=== PATIENT | female | born 1975 | race Caucasian/White ===

== ENCOUNTER 2016-03-12 05:50 | Emergency (ER) | payer OTHER ==
[2016-03-12] MEDS ORDERED: KETOROLAC 30 MG/ML VIAL ONE (06:16)
[2016-03-12] MEDS ORDERED: ONDANSETRON 4 MG/2 ML VIAL IVP STA (06:16)
[2016-03-12] MEDS ORDERED: HYDROmorphone 1 MG/ML SYRINGE IVP STA ×2 (06:16→07:43)
[2016-03-12] MEDS ORDERED: KETOROLAC 60 MG/2 ML VIAL IVP STA (06:16)
[2016-03-12] MEDS ORDERED: ONDANSETRON 4 MG/2 ML VIAL ONE (06:16)
[2016-03-12] MEDS ORDERED: HYDROmorphone 1 MG/ML SYRINGE ONE ×2 (06:16→07:50)
[2016-03-12] MEDS ORDERED: SODIUM CHLORIDE 0.9% 1,000 ML IV STA (06:17)
[2016-03-12] MEDS ORDERED: oxyCODONE 5 MG TABLET PO STA (07:43)
[2016-03-12] MEDS ORDERED: oxyCODONE 5 MG TABLET ONE (07:51)
== END 2016-03-12 08:23 | disposition home or self-care (01) ==
DX: N20.2 Calculus of kidney with calculus of ureter (principal)
CPT/HCPCS: 74176; 81001; 81025; 96374; 96375; 96376; 99283; 99284; A9270; J1170

== ENCOUNTER 2016-04-06 17:33 | Emergency (ER) | payer OTHER ==
[2016-04-06] MEDS ORDERED: SODIUM CHLORIDE 0.9% 1,000 ML IV ONE (18:11)
[2016-04-06] MEDS ORDERED: ONDANSETRON 4 MG/2 ML VIAL IVP STA (18:11)
[2016-04-06] MEDS ORDERED: KETOROLAC 60 MG/2 ML VIAL IVP STA (18:11)
[2016-04-06] MEDS ORDERED: HYDROmorphone 1 MG/ML SYRINGE IVP STA ×2 (18:11→20:35)
[2016-04-06] MEDS ORDERED: KETOROLAC 30 MG/ML VIAL ONE (18:30)
[2016-04-06] MEDS ORDERED: ONDANSETRON 4 MG/2 ML VIAL ONE (18:30)
[2016-04-06] MEDS ORDERED: HYDROmorphone 1 MG/ML SYRINGE ONE ×2 (18:30→20:37)
== END 2016-04-06 21:25 | disposition home or self-care (01) ==
DX: T83.84XA Pain due to genitourinary prosthetic devices, implants and grafts, initial encounter (principal); Y83.8 Other surgical procedures as the cause of abnormal reaction of the patient, or of later complication, without mention of misadventure at the time of the procedure; Z87.442 Personal history of urinary calculi
CPT/HCPCS: 36415; 76775; 80053; 81001; 81025; 83690; 85025; 87086; 96361; 96374; 96375; 96376; 99284; J1170

== ENCOUNTER 2016-04-07 10:16 | Emergency (ER) | payer OTHER ==
[2016-04-07] MEDS ORDERED: KETOROLAC 60 MG/2 ML VIAL IVP STA (12:07)
[2016-04-07] MEDS ORDERED: HYDROmorphone 1 MG/ML SYRINGE IVP STA ×2 (12:07→12:44)
[2016-04-07] MEDS ORDERED: ONDANSETRON 4 MG/2 ML VIAL IVP STA (12:07)
[2016-04-07] MEDS ORDERED: SODIUM CHLORIDE 0.9% 1,000 ML IV ONE (12:07)
[2016-04-07] MEDS ORDERED: ONDANSETRON 4 MG/2 ML VIAL ONE (12:10)
[2016-04-07] MEDS ORDERED: KETOROLAC 30 MG/ML VIAL ONE (12:10)
[2016-04-07] MEDS ORDERED: HYDROmorphone 1 MG/ML SYRINGE ONE ×2 (12:10→12:49)
[2016-04-07] MEDS ORDERED: LORazepam 2 MG/ML SYRINGE ONE (13:07)
[2016-04-07] MEDS ORDERED: LORazepam 2 MG/ML SYRINGE IVP STA (13:07)
== END 2016-04-07 14:49 | disposition home or self-care (01) ==
DX: R10.84 Generalized abdominal pain (principal); K59.09 Other constipation; F41.9 Anxiety disorder, unspecified; Z87.442 Personal history of urinary calculi; G40.909 Epilepsy, unspecified, not intractable, without status epilepticus
CPT/HCPCS: 36415; 74000; 80048; 81001; 87086; 96361; 96374; 96375; 96376; 99283; 99284; J1170; J2060

== ENCOUNTER 2017-05-15 17:56 | Emergency (ER) | payer OTHER ==
--- NOTE | 2017-05-15 19:29 | XRAY Report ---
EXAM: CHEST RADIOGRAPHY EXAM DATE: 05/15/2017 06:52 PM. CLINICAL HISTORY: Fever, productive cough. COMPARISON: 03/09/2012 chest x-ray. TECHNIQUE: 2 views. FINDINGS: Lungs/Pleura: No focal opacities evident. No pleural effusion. No pneumothorax. Normal volumes. Mediastinum: Heart and mediastinal contours are unremarkable. Other: None. IMPRESSION: Normal 2-view chest radiography. [facility] Referring Provider Line: [phone] SITE ID: [id number]
[2017-05-15] MEDS ORDERED: ACETAMINOPHEN 325 MG TABLET PO STA (20:03)
[2017-05-15 20:21] VITALS: BP 136/90
[2017-05-15] MEDS ORDERED: ONDANSETRON ODT 4 MG TABLET TL STA (20:35)
--- NOTE | 2017-05-15 20:38 | ED Physician Documentation ---
PD HPI URI - Stated complaint Stated Complaint: cough,fever,congestion - Chief complaint Chief Complaint: Fever - History obtained from History obtained from: Patient - History of Present Illness Timing - onset: How many days ago (2) Timing details: Gradual onset, Still present Associated symptoms: Fever, Chills, Nasal congestion, Rhinorrhea, Dry cough Contributing factors: Sick contact Similar symptoms before: No diagnosis Recently seen: Not recently seen - Additional information Additional information: Patient is a 41 year old female with no significant past medical history who is presenting to the emergency department for fevers chills, nausea, congestion, and cough. Patient states that two other people in her house have been sick with similar symptoms. Patient states that she took mucinex dm but her symptoms persisted. Review of Systems Constitutional: reports: Fever, Chills Eyes: reports: Reviewed and negative Ears: denies: Ear pain Nose: reports: Rhinorrhea / runny nose, Congestion, Sinus pressure / pain Throat: denies: Sore throat Respiratory: reports: Cough. denies: Wheezing GI: reports: Nausea. 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 HEENT: Tonsil/Adenoidectomy - Present Medications Home Medications: Ambulatory Orders Medication Instructions Recorded Confirmed Topiramate [Topamax] 25 mg PO DAILY PRN 02/09/16 03/12/16 Zolpidem [Ambien] 5 mg PO DAILY 02/09/16 03/12/16 Ondansetron Odt [Zofran] 4 mg TL Q6H PRN #14 tablet 05/15/17 - Allergies Allergies/Adverse Reactions: Allergies Allergy/AdvReac Type Severity Reaction Status Date / Time sulfamethoxazole AdvReac Unknown Verified 05/15/17 18:02 [From ] trimethoprim [From ] AdvReac Unknown Verified 05/15/17 18:02 - Social History Does the pt smoke?: No Smoking Status: Never smoker Does the pt drink ETOH?: Yes Does the pt have substance abuse?: No - Immunizations Immunizations are current?: Yes Immunizations: Other immun current - POLST Patient has POLST: No PD ED PE NORMAL - Vitals Vital signs reviewed: Yes - General General: Alert and oriented X 3 - HEENT HEENT: Atraumatic, PERRL, Moist mucous membranes - Neck Neck: Supple, no meningeal sign - Cardiac Cardiac: RRR, No murmur - Respiratory Respiratory: No respiratory distress - Abdomen Abdomen: Soft, Non distended - Derm Derm: Normal color, No rash - Extremities Extremities: No deformity - Neuro Neuro: Alert and oriented X 3 Eye Opening: Spontaneous PD ED PE EXPANDED - HEENT HEENT: Nasal congestion, Rhinorrhea Results - Vitals Vitals: Vital Signs - 24 hr 05/15/17 05/15/17 05/15/17 17:59 19:57 20:20 Temperature 36.8 C 38.9 C H 37.1 C Heart Rate 95 96 Respiratory 22 20 Rate Blood Pressure 120/86 H 136/90 H O2 Saturation 97 97 Oxygen O2 Source Room air - Labs Labs: Laboratory Tests 05/15/17 05/15/17 18:08 20:14 Urine Color YELLOW Urine Clarity CLEAR Urine pH 6.0 Ur Specific [place] <=1.005 Urine Protein NEGATIVE Urine Glucose (UA) NEGATIVE Urine Ketones NEGATIVE Urine Occult Blood NEGATIVE Urine Nitrite NEGATIVE Urine Bilirubin NEGATIVE Urine Urobilinogen 0.2 (NORMAL) Ur Leukocyte Esterase TRACE H Urine RBC None Seen Urine WBC 0-3 Ur Squamous Epith Cells MOD Squamous H Urine Bacteria None Seen Ur Microscopic Review INDICATED Urine Culture Comments NOT INDICATED Influenza A (Rapid) Negative Influenza B (Rapid) Negative Influenza Types A,B Ag - PD MEDICAL DECISION MAKING - ED course Complexity details: reviewed old records, reviewed results, re-evaluated patient , considered differential, d/w patient ED course: patient was seen and examined at bedside. Patient's chest x-ray and flu swab was negative, but clinically patient had signs and symptoms of influenza. Patient was treated with zofran and tylenol. patient was able to tolerate PO without difficulty. patient was given detailed discharge and follow up instructions. patient required no further work up and was stable for discharge with outpatient follow up. Departure - Departure Disposition: 01 Home, Self Care Clinical Impression: Viral syndrome Condition: Good Instructions: ED Fever Control, ED Flu, ED Viral Syndrome Follow-Up: Gregor,Jillian K, PA-C [Primary Care Provider] - Prescriptions: Ondansetron Odt [Zofran] 4 mg TL Q6H PRN #14 tablet PRN Reason: Nausea / Vomiting Comments: Your diagnostics today were within normal limits. That being said you clinically seem to have the flu. Either way the treatment is the same with supportive care. The over the counter cold and flu medications are good but you will need to supplement the doses of acetaminophen or ibuprofen for better fever control. You should be taking 1000mg of acetaminophen every 6 hours alternating with 600mg of ibuprofen. It is important to drink at least 100oz of fluids a day and get plenty of sleep. You should stay out of work until your fevers/symptoms resolve. You should follow up with your doctor if your symptoms persist. You may return to the emergency department at any time for new, worsening or uncontrollable sympotms. Discharge Date/Time: 05/15/17 20:49
[2017-05-15 20:42] LABS: BILIRUBIN,URINE NEGATIVE (NEGATIVE); GLUCOSE, URINE (UA) NEGATIVE (NEGATIVE); KETONES,URINE (UA) NEGATIVE (NEGATIVE); LEUKOCYTE ESTERASE, URINE TRACE (NEGATIVE); NITRITE,URINE NEGATIVE (NEGATIVE); OCCULT BLOOD,URINE NEGATIVE (NEGATIVE); PROTEIN,URINE NEGATIVE (NEGATIVE); UROBILINOGEN,URINE 0.2 (NORMAL) E.U./dL (NORMAL)
[2017-05-15 20:44] LABS: CLARITY,URINE CLEAR (CLEAR)
[2017-05-15 20:50] LABS: BACTERIA,URINE None Seen /HPF (None Seen); RBC,URINE None Seen /HPF (0-5); SQUAMOUS EPITHELIAL CELL,UR MOD Squamous (<= Few)
== END 2017-05-15 20:49 | disposition home or self-care (01) ==
LOC: ED 17:56
DX: B34.9 Viral infection, unspecified (principal)
CPT/HCPCS: 71046; 81001; 87275; 87276; 99283; A9270; Q0162; 81003; 87086

== ENCOUNTER 2017-06-04 16:11 | Outpatient (CLI) | payer OTHER ==
--- NOTE | 2017-06-05 11:50 | Mammography Report ---
DIGITAL SCREENING MAMMOGRAM: 06/04/2017 CLINICAL INDICATION: A 41-year-old for screening. COMPARISON: 05/2015, 04/2002. TECHNIQUE: Routine CC and MLO projections were obtained of the breasts. FINDINGS: Parenchymal tissue within the breasts is predominantly fatty replaced. There are no dominant masses, suspicious microcalcifications, or secondary signs of malignancy. In comparison to the previous studies, there are no significant changes. IMPRESSION: NO MAMMOGRAPHIC EVIDENCE OF MALIGNANCY. NO SIGNIFICANT INTERVAL CHANGES. RECOMMENDATION: Screening mammography is recommended annually. BIRADS CATEGORY 1 - NEGATIVE. STANDARD QUALIFYING STATEMENTS: 1. This examination was reviewed with the aid of Computed-Aided Detection (CAD). 2. A negative or benign imaging report should not delay biopsy if clinically suspicious findings are present. Consider surgical consultation if warranted. More than 5% of cancers are not identified by imaging. 3. Dense breasts may obscure an underlying neoplasm. TD: 06/05/2017 11:49
== END 2017-06-04 16:12 | disposition home or self-care (01) ==
LOC: DI 16:11
PROVIDERS: ATTEND Obstetrics & Gynecology
DX: Z12.31 Encounter for screening mammogram for malignant neoplasm of breast (principal)
CPT/HCPCS: 77067

== ENCOUNTER 2017-06-08 15:26 | Outpatient (CLI) | payer OTHER ==
--- NOTE | 2017-06-09 00:01 | XRAY Report ---
EXAM: LEFT ANKLE RADIOGRAPHY EXAM DATE: 06/08/2017 03:49 PM. CLINICAL HISTORY: Left ankle pain x6 months. COMPARISON: 03/30/2006. TECHNIQUE: 3 views. FINDINGS: Bones: Small plantar calcaneal spur. No fracture or bone lesion. Joints: Normal alignment. The ankle mortise is symmetric. No tibiotalar joint effusion. Soft Tissues: Normal. No soft tissue swelling. IMPRESSION: 1. Small plantar calcaneal spur. 2. No acute bony abnormality. [facility] Referring Provider Line: [phone] SITE ID: [id number]
--- NOTE | 2017-06-09 00:01 | XRAY Report ---
EXAM: LEFT FOOT RADIOGRAPHY EXAM DATE: 06/08/2017 03:48 PM. CLINICAL HISTORY: Left foot pain at lateral heel x6 months. COMPARISON: 05/09/2006. TECHNIQUE: 3 views. FINDINGS: Bones: Small plantar calcaneal spur. No fracture or bone lesion. Joints: Normal alignment. No significant arthritic change. Soft Tissues: Normal. No soft tissue swelling. IMPRESSION: 1. Small plantar calcaneal spur. 2. No acute bony abnormality. [facility] Referring Provider Line: [phone] SITE ID: [id number]
== END 2017-06-08 15:27 | disposition home or self-care (01) ==
LOC: DI 15:26
PROVIDERS: ATTEND Physician Assistant
DX: M77.32 Calcaneal spur, left foot (principal)

== ENCOUNTER 2017-07-29 13:31 | Outpatient (CLI) | payer OTHER ==
--- NOTE | 2017-07-29 19:22 | CT Report ---
CT SCAN ABDOMEN AND PELVIS WITHOUT CONTRAST: 07/29/2017 HISTORY: Right flank pain for 6 days, radiating into lower back. COMPARISON: 03/12/2016 CT. TECHNIQUE: Axial noncontrast images abdomen and pelvis with multiplanar reconstructions. In accordance with CT protocol optimization, one or more of the following dose reduction techniques were utilized for this exam: Automated exposure control, adjustment of mA and/or KV based on patient size, or use of iterative reconstructive technique. FINDINGS: Clear lung bases. No right-sided stones, evidence of obstruction or perinephric stranding appreciated. On the left, 3 or 4 punctate nonobstructing calculi are similar to previous. There is no evidence of hydroureteronephrosis or ureteral stones. The bladder is unremarkable without stones. Noncontrast imaging of the liver, gallbladder, spleen, pancreas and adrenal glands is unremarkable. No free fluid, pathologically enlarged lymph nodes, abnormal collections, diverticulitis, or other abnormality. The appendix is not seen. Bony structures are unremarkable. IMPRESSION: NO EVIDENCE OF AN ACUTE PROCESS IN EITHER THE ABDOMEN OR PELVIS. NO EVIDENCE OF RIGHT RENAL STONES OR OBSTRUCTION. PUNCTATE NONOBSTRUCTING LEFT RENAL CALCULI ARE SIMILAR IN APPEARANCE TO 03/12/2016. Results called to Dr. Fisher 07/29/2017 at 2 p.m. TD: 07/29/2017 16:14 MTDOfe
--- NOTE | 2017-07-29 19:50 | CT Preliminary Report ---
Exam: CT ABDOMEN/PELVIS W/O IMPRESSION: A few small bilateral renal calculi, nonobstructing. No hydronephrosis, hydroureter or ur eteral calculi. No bladder calculi. [facility] The call report notification system was initiated by Dr. Evelyn Zavaleta at 19:45 hrs on 07/29/17. The above findings were discussed with Dr. Natalia Dr by Dr. Evelyn Zavaleta at 19:48 hrs on 07/29/17. SITE ID: [id number]
== END 2017-07-29 13:32 | disposition home or self-care (01) ==
LOC: DI 13:31
PROVIDERS: ATTEND Specialist
DX: N20.0 Calculus of kidney (principal)
CPT/HCPCS: 74176

== ENCOUNTER 2017-10-08 14:45 | Outpatient (CLI) | payer OTHER ==
--- NOTE | 2017-10-09 08:28 | DEXA Report ---
Procedure Date: 10/08/2017 Accession Number: [id number] / [id number] Procedure: DEX - Dexa Spine and/or Hip CPT Code: FULL RESULT: EXAM: Dexa Spine and/or Hip DATE: 10/08/2017 3:20 PM CLINICAL HISTORY: POST MENOPAUSAL TECHNIQUE: Dual energy x-ray absorptiometry (DXA) was performed on a [employer]. Regions measured are the AP Spine, femoral neck, and if needed forearm. COMPARISON: None. In accordance with the International Society for Clinical Densitometry (ISCD) guidelines, data from previous exams may be reanalyzed using current recommendations and techniques. This is done to allow a more accurate basis for comparison with the current study. FINDINGS: The data for the lumbar spine is as follows: BMD (g/cm/cm) T-SCORE Z-SCORE REGION L1 0.796 -2.8 -4.0 L2 0.795 -3.4 -4.5 L3 0.890 -2.6 -3.7 L4 0.908 -2.4 -3.6 TOTAL 0.852 -2.7 -3.9 NOTE: All evaluable vertebrae are used for classification The data for the hip is as follows: BMD (g/cm/cm) T-SCORE Z-SCORE REGION Neck 0.868 -1.2 -1.4 TOTAL 0.889 -0.9 -1.5 NOTE: The femoral neck or total proximal femur, whichever is lowest, is used for classification. IMPRESSION: THE WHO CLASSIFICATION BASED ON THE INTERNATIONAL REFERENCE STANDARD IS OSTEOPOROSIS. THE FRACTURE RISK IS HIGH. RECOMMENDATION: Patients with diagnosis of osteoporosis or osteopenia should have regular bone mineral density assessment. For those eligible for Medicare, routine testing is allowed once every 2 years. Testing frequency can be increased for patients who have rapidly progressing disease or for those who are receiving medical therapy to restore bone mass. COMMENT: World Health Organization (WHO) definitions for osteoporosis and osteopenia: NORMAL BMD: T-score at -1.0 or higher, fracture risk is low OSTEOPENIA BMD: T-score between -1.0 and -2.5, fracture risk is increased. OSTEOPOROSIS BMD: T-score at -2.5 or lower, fracture risk is high. National Osteoporosis Foundation recommends: 1. Obtain adequate dietary calcium (at least 1200 mg per day) and vitamin D (400-800 international units per day). 2. Participate, as appropriate, in regular weightbearing and muscle-strengthening exercise. 3. Avoid tobacco use and reduce alcohol and caffeine intake. 4. For more detailed information see the website at www.NOF.org.
== END 2017-10-08 14:46 | disposition home or self-care (01) ==
LOC: DI 14:45
PROVIDERS: ATTEND Physician Assistant
DX: M85.89 Other specified disorders of bone density and structure, multiple sites (principal); Z78.0 Asymptomatic menopausal state; Z90.721 Acquired absence of ovaries, unilateral
CPT/HCPCS: 77080

== ENCOUNTER 2017-10-18 11:39 | Outpatient (CLI) | payer OTHER ==
[2017-10-18 11:54] LABS: BASOPHILS % (AUTO) 0.4 %; EOSINOPHILS # (AUTO) 0.1 10^3/uL (0.0-0.7); EOSINOPHILS % (AUTO) 1.1 %; HGB - HEMOGLOBIN 13.7 g/dL (12.0-16.0); LYMPHOCYTES # (AUTO) 1.7 10^3/uL (1.5-3.5); LYMPHOCYTES % (AUTO) 20.2 %; MEAN CORPUSCULAR HEMOGLOBIN 31.3 pg (27.0-31.0); MEAN CORPUSCULAR HGB CONC 34.5 g/dL (32.0-36.0); MEAN CORPUSCULAR VOLUME 90.6 fL (81.0-99.0); MEAN PLATELET VOLUME 7.5 fL (7.9-10.8); MONOCYTES # (AUTO) 0.5 10^3/uL (0.0-1.0); MONOCYTES % (AUTO) 6.1 %; NEUTROPHILS # (AUTO) 6.2 10^3/uL (1.5-6.6); NEUTROPHILS % (AUTO) 72.2 %; PLT - PLATELET COUNT 329 10^3/uL (130-450); RED BLOOD COUNT 4.38 10^6/uL (4.20-5.40); RED CELL DISTRIBUTION WIDTH 13.1 % (12.0-15.0); WHITE BLOOD COUNT 8.6 x10^3/uL (4.8-10.8)
== END 2017-10-18 11:40 | disposition home or self-care (01) ==
LOC: LAB 11:39
PROVIDERS: ATTEND Physician Assistant
DX: R10.32 Left lower quadrant pain (principal)
CPT/HCPCS: 36415; 85025

== ENCOUNTER 2017-12-06 09:37 | Outpatient (CLI) | payer OTHER | END 2017-12-06 09:38 | disposition home or self-care (01) | LOC: NS 09:37 | PROVIDERS: ATTEND Physician Assistant | DX: Z71.3 Dietary counseling and surveillance (principal); E66.9 Obesity, unspecified; Z68.39 Body mass index [BMI] 39.0-39.9, adult | CPT/HCPCS: 97802 ==

== ENCOUNTER 2017-12-20 09:10 | Outpatient (CLI) | payer OTHER | END 2017-12-20 09:11 | disposition home or self-care (01) | LOC: NS 09:10 | PROVIDERS: ATTEND Physician Assistant | DX: Z71.3 Dietary counseling and surveillance (principal); E66.9 Obesity, unspecified; Z68.39 Body mass index [BMI] 39.0-39.9, adult | CPT/HCPCS: 97803 ==

== ENCOUNTER 2018-08-12 10:21 | Emergency (ER) | payer OTHER ==
--- NOTE | 2018-08-12 10:46 | ED Physician Documentation ---
History of Present Illness - Stated complaint Stated Complaint: LT SIDE PX - Chief complaint Chief Complaint: Abd Pain - History obtained from History obtained from: Patient - Additonal information Additional information: Patient is a 42-year-old female with history of nephrolithiasis presenting with left-sided flank pain that radiates slightly towards abdomen. Patient also complains of nausea without vomiting, but denies dysuria, hematuria or other urinary changes. Patient also denies stool changes, chills, or fever. Patient reports symptoms initially began as right flank pain yesterday and have progressed to left-sided flank pain. Patient denies other complaints and otherwise has been at her normal state of health. No other improving or worsening factors noted. 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 - Present Medications Home Medications: Ambulatory Orders Medication Instructions Recorded Confirmed Topiramate [Topamax] 25 mg PO DAILY PRN 02/09/16 03/12/16 Zolpidem [Ambien] 5 mg PO DAILY 02/09/16 03/12/16 Ondansetron Odt [Zofran] 4 mg TL Q6H PRN #14 tablet 05/15/17 Ciprofloxacin [Cipro] 500 mg PO Q12H 7 Days tablet 08/12/18 - Allergies Allergies/Adverse Reactions: Allergies Allergy/AdvReac Type Severity Reaction Status Date / Time sulfamethoxazole AdvReac Unknown Verified 08/12/18 10:28 [From ] trimethoprim [From ] AdvReac Unknown Verified 08/12/18 10:28 - Social History Does the pt smoke?: No Smoking Status: Never smoker Does the pt drink ETOH?: Yes Does the pt have substance abuse?: No - Immunizations Immunizations are current?: Yes Immunizations: Other immun current - POLST Patient has POLST: No PD ED PE NORMAL - Vitals Vital signs reviewed: Yes - General General: Alert and oriented X 3, No acute distress, Well developed/nourished - HEENT HEENT: Atraumatic, Moist mucous membranes - Cardiac Cardiac: RRR, No murmur - Respiratory Respiratory: No respiratory distress, Clear bilaterally - Abdomen Abdomen: Soft, Non tender, Non distended - Back Back: No: No CVA TTP (Left CVA tenderness) - Derm Derm: Normal color, Warm and dry, No rash - Extremities Extremities: No deformity, No tenderness to palpate - Neuro Neuro: Alert and oriented X 3, No motor deficit, No sensory deficit - Psych Psych: Normal mood, Normal affect Results - Vitals Vitals: Vital Signs - 24 hr 08/12/18 08/12/18 10:26 12:47 Temperature 37.0 C Heart Rate 96 73 Respiratory 18 17 Rate Blood Pressure 150/87 H 143/95 H O2 Saturation 97 100 Oxygen O2 Source Room air - Labs Labs: Laboratory Tests 08/12/18 08/12/18 08/12/18 10:45 11:25 11:25 WBC 7.1 RBC 4.80 Hgb 14.3 Hct 44.9 MCV 93.5 MCH 29.8 MCHC 31.8 L RDW 12.1 Plt Count 365 MPV 9.8 Neut # (Auto) 4.9 Lymph # (Auto) 1.7 Turner # (Auto) 0.4 Eos # (Auto) 0.1 Baso # (Auto) 0.0 Absolute Nucleated RBC 0.00 Nucleated RBC % 0.0 Sodium 142 Potassium 4.2 Chloride 103 Carbon Dioxide 28 Anion Gap 11.0 BUN 10 Creatinine 0.7 Estimated GFR (MDRD) 91 Glucose 99 Calcium 9.8 Total Bilirubin 0.8 AST 27 ALT 25 Alkaline Phosphatase 91 Total Protein 8.1 Albumin 4.5 Globulin 3.6 Albumin/Globulin Ratio 1.3 Lipase 35 Urine Color YELLOW Urine Clarity CLEAR Urine pH 8.0 H Ur Specific [place] 1.015 Urine Protein NEGATIVE Urine Glucose (UA) NEGATIVE Urine Ketones NEGATIVE Urine Occult Blood NEGATIVE Urine Nitrite NEGATIVE Urine Bilirubin NEGATIVE Urine Urobilinogen 0.2 (NORMAL) Ur Leukocyte Esterase NEGATIVE Ur Microscopic Review NOT INDICATED Urine Culture Comments NOT INDICATED Urine HCG, Qual NEGATIVE PD MEDICAL DECISION MAKING - ED course Complexity details: reviewed results, re-evaluated patient, considered differential, d/w patient ED course: Most concerning for pyelonephritis, UTI, nephrolithiasis, particularly given patient's history of nephrolithiasis. Patient started on IV fluids and additionally received nausea and pain medications throughout her ED stay.Have lower suspicion for other intra-abdominal pathology such as gallbladder disease, appendicitis, small bowel obstruction, diverticulitis, AAA, but considered. Also lower suspicion for other pelvic pathology, particularly given previous Hysterectomy and ovary removal. Screening lab work and urinalysis returned unremarkable. CT did not find evidence of hydronephrosis, Nephrolithiasis, or other significant acute pathology. However, patient continues to have left flank pain. Most appropriate to treat as pyelonephritis and patient is agreeable to such using oral antibiotics at home. Also discussed other suppo rtive cares, return precautions, close follow-up. Patient does have available ride home if needed. Departure - Departure Disposition: , Self Care Clinical Impression: Pyelonephritis Condition: Good Instructions: ED Kidney Infec Female Follow-Up: Jeanne Reed PA-C [Primary Care Provider] - Within 3 Days Prescriptions: Ciprofloxacin [Cipro] 500 mg PO Q12H 7 Days tablet Comments: Please continue any home medications as previously instructed. Please take antibiotics as prescribed for possible kidney infection. Recommend use of Tylenol if needed, as well as hydration, healthy diet, and follow-up with primary care physician in next 2 to 3 days. Return to ED sooner if experience worsening symptoms or other concerns.
[2018-08-12] MEDS ORDERED: SODIUM CHLORIDE 0.9% 1,000 ML IV ONE (11:02)
[2018-08-12] MEDS ORDERED: ONDANSETRON 4 MG/2 ML VIAL IVP STA ×2 (11:02→13:25)
[2018-08-12 11:03] LABS: BILIRUBIN,URINE NEGATIVE (NEGATIVE); GLUCOSE, URINE (UA) NEGATIVE (NEGATIVE); KETONES,URINE (UA) NEGATIVE (NEGATIVE); LEUKOCYTE ESTERASE, URINE NEGATIVE (NEGATIVE); NITRITE,URINE NEGATIVE (NEGATIVE); OCCULT BLOOD,URINE NEGATIVE (NEGATIVE); PROTEIN,URINE NEGATIVE (NEGATIVE); UROBILINOGEN,URINE 0.2 (NORMAL) E.U./dL (NORMAL)
[2018-08-12] MEDS ORDERED: KETOROLAC 30 MG/ML VIAL IVP STA (11:03)
[2018-08-12 11:07] LABS: CLARITY,URINE CLEAR (CLEAR); HCG UR QUAL NEGATIVE
[2018-08-12 11:44] LABS: BASOPHILS % (AUTO) 0.6 %; EOSINOPHILS # (AUTO) 0.1 10^3/uL (0.0-0.7); EOSINOPHILS % (AUTO) 1.1 %; HGB - HEMOGLOBIN 14.3 g/dL (12.0-16.0); LYMPHOCYTES # (AUTO) 1.7 10^3/uL (1.5-3.5); LYMPHOCYTES % (AUTO) 24.1 %; MEAN CORPUSCULAR HEMOGLOBIN 29.8 pg (27.0-31.0); MEAN CORPUSCULAR HGB CONC 31.8 g/dL (32.0-36.0); MEAN CORPUSCULAR VOLUME 93.5 fL (81.0-99.0); MEAN PLATELET VOLUME 9.8 fL (7.9-10.8); MONOCYTES # (AUTO) 0.4 10^3/uL (0.0-1.0); MONOCYTES % (AUTO) 4.9 %; NEUTROPHILS # (AUTO) 4.9 10^3/uL (1.5-6.6); NEUTROPHILS % (AUTO) 68.7 %; PLT - PLATELET COUNT 365 10^3/uL (130-450); RED CELL DISTRIBUTION WIDTH 12.1 % (12.0-15.0); WHITE BLOOD COUNT 7.1 x10^3/uL (4.8-10.8)
[2018-08-12 11:58] LABS: ALBUMIN 4.5 g/dL (3.2-5.5); ALBUMIN/GLOBULIN RATIO 1.3 (1.0-2.2); BILIRUBIN,TOTAL 0.8 mg/dL (0.2-1.0); CALCIUM 9.8 mg/dL (8.5-10.3); CREATININE 0.7 mg/dL (0.4-1.0); TOTAL PROTEIN 8.1 g/dL (6.7-8.2)
[2018-08-12] MEDS ORDERED: fentaNYL 100 MCG/2 ML VIAL IVP STA (12:22)
--- NOTE | 2018-08-12 13:56 | CT Report ---
Reason: left flank pain, concern for stone Procedure Date: 08/12/2018 Accession Number: [id number] / [id number] Procedure: CT - Abdomen/Pelvis WO CPT Code: FULL RESULT: EXAM: CT ABDOMEN AND PELVIS (CT KUB) EXAM DATE: 08/12/2018 01:15 PM. CLINICAL HISTORY: Left flank pain, concern for stone. COMPARISONS: ABDOMEN/PELVIS W/O 07/29/2017 1:40 PM. TECHNIQUE: Routine axial helical CT imaging was performed through the abdomen and pelvis without IV contrast. Reconstructions: Coronal and sagittal. In accordance with CT protocol optimization, one or more of the following dose reduction techniques were utilized for this exam: automated exposure control, adjustment of mA and/or KV based on patient size, or use of iterative reconstructive technique. FINDINGS: Lung Bases: Unremarkable. Right Kidney/Ureter: No stones, hydronephrosis, or hydroureter. No perinephric fat stranding. Left Kidney/Ureter: There are nonobstructing renal calculi on the left, the largest of which measures 6 mm with 3 smaller calculi measuring 4 mm or less each. There is no hydronephrosis or perinephric fat stranding. No hydroureter. Other Solid Organs: There is subtle stranding in the region of the pancreatic head. The noncontrasted liver, spleen, adrenal glands appear unremarkable. Gallbladder/Bile Ducts: Unremarkable. Peritoneal Cavity: No free fluid, free air or sudheer adenopathy. Bowel is grossly unremarkable. Pelvic Organs: No bladder stones or wall thickening. Calculi in the region of the perivesicular pelvis are stable compared to prior and felt to represent phleboliths. Noncontrast images of the visualized pelvic organs are unremarkable. Vasculature: Unremarkable. Other: None. IMPRESSION: Nonobstructing left urinary stones. No hydronephrosis. Mild nonspecific fat stranding in the pancreatic region, correlate with lipase. [facility] The call report notification system was initiated by Dr. Carl Whitney at 01:54 PM on 08/12/2018. ADDENDUM: 08/12/18 14:43 The above call report findings were discussed with Claritza Cruz by Dr. Carl Whitney at approximately 1:30 PM on 08/12/2018.
[2018-08-12 14:19] VITALS: BP 128/93
== END 2018-08-12 14:24 | disposition home or self-care (01) ==
LOC: ED 10:21
DX: R10.9 Unspecified abdominal pain (principal); M54.9 Dorsalgia, unspecified; R11.0 Nausea; N20.0 Calculus of kidney; Z90.710 Acquired absence of both cervix and uterus; Z90.722 Acquired absence of ovaries, bilateral
CPT/HCPCS: 36415; 74176; 80053; 81001; 81003; 81025; 83690; 85025; 87086; 96361; 96374; 96375; 96376; 99283; 99284

== ENCOUNTER 2018-09-05 04:22 | Outpatient (CLI) | payer OTHER | END 2018-09-05 04:23 | disposition critical access hospital (66) | LOC: EMS 04:22 | PROVIDERS: ATTEND Surgery | DX: R10.9 Unspecified abdominal pain (principal) | CPT/HCPCS: A0425; A0427 ==

== ENCOUNTER 2018-09-05 04:35 | Emergency (ER) | payer OTHER ==
[2018-09-05] MEDS ORDERED: SODIUM CHLORIDE 0.9% 1,000 ML IV ONE (04:49)
[2018-09-05] MEDS ORDERED: ONDANSETRON 4 MG/2 ML VIAL IVP STA (04:49)
[2018-09-05] MEDS ORDERED: HYDROmorphone 1 MG/ML CARPUJECT IVP STA ×3 (04:49→06:17)
--- NOTE | 2018-09-05 04:49 | ED Physician Documentation ---
<Janice Nascimento Gaye - Last Filed: 09/05/18 07:05> PD HPI ABD PAIN - Stated complaint Stated Complaint: ABD PAIN - Chief complaint Chief Complaint: Abd Pain - History obtained from History obtained from: Patient - History of Present Illness Timing - onset: Today (Just prior to arrival) Timing - duration: Other (Just prior to arrival) Timing - details: Abrupt onset Pain level max: >10 Pain level now: >10 Location: LLQ Improved by: Other (Nothing) Worsened by: Other (Nothing) Associated symptoms: Nausea, Vomiting. No: Fever, Diarrhea, Hematochezia, Dysuria, Hematuria Similar symptoms before: Has not had sx before Recently seen: Not recently seen - Additional information Additional information: This is a 42-year-old woman who presents with complaints that she was awakened abruptly from sleep just prior to arrival with pain in her left lower quadrant. She got up and got dressed with intentions of driving herself here but the pain kept getting more severe so she called her dad who lives in the same house and he called 911. She was nauseous and had "a tiny bit" of vomiting at home. She denies any dysuria or blood in the urine. She did have a kidney stone removal in 2015. She denies diarrhea. She is status post total hysterectomy and oophorectomy. Review of Systems Unable to obtain: Other (Severe pain) Constitutional: denies: Fever GI: reports: Abdominal Pain, Nausea, Vomiting : denies: Dysuria, Frequency, Hematuria, Now EGA PD PAST MEDICAL HISTORY - Past Medical History : Kidney stones - Past Surgical History Past Surgical History: Yes /[employer]: Hysterectomy, Oophrectomy HEENT: Tonsil/Adenoidectomy - Present Medications Home Medications: Ambulatory Orders Medication Instructions Recorded Confirmed Topiramate [Topamax] 25 mg PO DAILY PRN 02/09/16 03/12/16 Zolpidem [Ambien] 5 mg PO DAILY 02/09/16 03/12/16 Ondansetron Odt [Zofran] 4 mg TL Q6H PRN #14 tablet 05/15/17 Ciprofloxacin [Cipro] 500 mg PO Q12H 7 Days tablet 08/12/18 Oxycodone HCl/Acetaminophen 1 - 2 each PO Q6H PRN #14 tablet 09/05/18 [Percocet 5-325 mg Tablet] Promethazine [Phenergan] 25 mg PO Q6H PRN #10 tab 09/05/18 Tamsulosin [Flomax] 0.4 mg PO DAILY #7 capsule 09/05/18 - Allergies Allergies/Adverse Reactions: Allergies Allergy/AdvReac Type Severity Reaction Status Date / Time sulfamethoxazole AdvReac Unknown Verified 09/05/18 04:40 [From ] trimethoprim [From ] AdvReac Unknown Verified 09/05/18 04:40 - Social History Does the pt smoke?: No Smoking Status: Never smoker Does the pt drink ETOH?: Yes Does the pt have substance abuse?: No - Immunizations Immunizations are current?: Yes Immunizations: Other immun current - POLST Patient has POLST: No PD ED PE NORMAL - Vitals Vital signs reviewed: Yes - General General: Alert and oriented X 3, Other (Patient is laying back on the exam gurney with her back arched and trembling in pain.) - HEENT HEENT: PERRL, Moist mucous membranes - Neck Neck: Supple, no meningeal sign - Cardiac Cardiac: RRR, No murmur - Respiratory Respiratory: No respiratory distress, Clear bilaterally - Abdomen Abdomen: Normal bowel sounds, Soft, Other (Tender left lower quadrant.) - Derm Derm: Normal color, Warm and dry, No rash - Neuro Neuro: Alert and oriented X 3, 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 She declined any further pain medications at this time. Her labs are still pending but she did provide a urine specimen. 0617: Patient's urine just dipped positive for some trace blood but they did not even do microscopic because it was not indicated. We did tell her with an order a CT to rule out a kidney stone and she was again shaking and trembling stated the pain was coming back. Another milligram of Dilaudid was ordered. 704: Care turned over to Dr Hardin. Departure - Departure Disposition: 01 Home, Self Care Clinical Impression: Renal colic, Left ureteral calculus Condition: Stable Instructions: ED Stone Renal W Colic Follow-Up: Jeanne Reed PA-C [Primary Care Provider] - Eros Kovacs MD [Physician No Access] - Prescriptions: Oxycodone HCl/Acetaminophen [Percocet 5-325 mg Tablet] 1 - 2 each PO Q6H PRN #14 tablet PRN Reason: pain Promethazine [Phenergan] 25 mg PO Q6H PRN #10 tab PRN Reason: Nausea / Vomiting Tamsulosin [Flomax] 0.4 mg PO DAILY #7 capsule Comments: Drink plenty of fluids. Take Flomax daily as prescribed. You can use ibuprofen, up to 800 mg 3 times daily for its anti-inflammatory effect. He can use Percocet as prescribed if needed for pain. You can use Phenergan as prescribed if needed for nausea. Follow-up with your urologist within 1 week if possible. Call to schedule appointment. Return to the emergency department if you develop increasing pain despite the pain medication, persistent vomiting, fever, or otherwise worsening symptoms. <Cristian Hardin - Last Filed: 09/05/18 07:53> Results - Vitals Vitals: Vital Signs - 24 hr 09/05/18 09/05/18 09/05/18 04:35 04:45 06:27 Temperature 37.1 C Heart Rate 97 118 H 88 Respiratory 24 20 22 Rate Blood Pressure 140/101 H 140/101 H 135/72 H O2 Saturation 95 93 100 09/05/18 09/05/18 07:15 07:30 Temperature Heart Rate 93 Respiratory 14 Rate Blood Pressure 122/83 H O2 Saturation 88 L 94 Oxygen O2 Source Nasal cannula Oxygen Flow Rate 2 - Labs Labs: Laboratory Tests 09/05/18 09/05/18 09/05/18 05:50 06:15 06:15 WBC 9.1 RBC 4.01 L Hgb 12.4 Hct 37.4 MCV 93.3 MCH 30.9 MCHC 33.2 RDW 12.6 Plt Count 363 MPV 9.9 Neut # (Auto) 7.1 H Lymph # (Auto) 1.3 L [place] # (Auto) 0.6 Eos # (Auto) 0.1 Baso # (Auto) 0.0 Absolute Nucleated RBC 0.00 Nucleated RBC % 0.0 Sodium 144 Potassium 4.2 Chloride 107 Carbon Dioxide 22 Anion Gap 15.0 H BUN 17 Creatinine 0.8 Estimated GFR (MDRD) 78 L Glucose 128 H Calcium 9.1 Total Bilirubin 0.9 AST 28 ALT 28 Alkaline Phosphatase 76 Total Protein 7.4 Albumin 4.0 Globulin 3.4 Albumin/Globulin Ratio 1.2 Lipase 35 Urine Color YELLOW Urine Clarity CLEAR Urine pH 7.5 Ur Specific [place] 1.015 Urine Protein NEGATIVE Urine Glucose (UA) NEGATIVE Urine Ketones TRACE Urine Occult Blood TRACE-INTA Urine Nitrite NEGATIVE Urine Bilirubin NEGATIVE Urine Urobilinogen 0.2 (NORMAL) Ur Leukocyte Esterase NEGATIVE Ur Microscopic Review NOT INDICATED Urine Culture Comments NOT INDICATED - Rads (name of study) CT abd/pelvis Radiology: Prelim report reviewed, EMP read contemporaneously, See rad report (1) Mildly obstructing 4 x 4 mm proximal left ureteral stone. 2) Small bilateral nonobstructing renal stones with left stone burden worse than right. 3) Previous hysterectomy.) PD MEDICAL DECISION MAKING - ED course ED course: The patient's presentation is most consistent with ureteral colic with a 4 x 4 millimeter left proximal ureteral stone seen on CT scan. When the patient returned from CT scan her pain had responded well to the medication that had been previously administered. She did not need further treatment prior to discharge. I discussed with her and her family the results of the CT scan, the importance of follow-up with her urologist, as well as potentially worrisome signs or symptoms that should prompt reevaluation in the emergency department. She is being discharged with prescriptions for Flomax, Percocet, and Phenergan.
[2018-09-05] MEDS ORDERED: KETOROLAC 30 MG/ML VIAL IVP STA (05:41)
[2018-09-05 05:58] LABS: BILIRUBIN,URINE NEGATIVE (NEGATIVE); GLUCOSE, URINE (UA) NEGATIVE (NEGATIVE); KETONES,URINE (UA) TRACE mg/dL (NEGATIVE); LEUKOCYTE ESTERASE, URINE NEGATIVE (NEGATIVE); NITRITE,URINE NEGATIVE (NEGATIVE); OCCULT BLOOD,URINE TRACE-INTA (NEGATIVE); PH,URINE 7.5 PH (5.0-7.5); PROTEIN,URINE NEGATIVE (NEGATIVE); UROBILINOGEN,URINE 0.2 (NORMAL) E.U./dL (NORMAL)
[2018-09-05 06:01] LABS: CLARITY,URINE CLEAR (CLEAR)
[2018-09-05 06:21] LABS: BASOPHILS % (AUTO) 0.4 %; EOSINOPHILS # (AUTO) 0.1 10^3/uL (0.0-0.7); EOSINOPHILS % (AUTO) 0.8 %; HGB - HEMOGLOBIN 12.4 g/dL (12.0-16.0); LYMPHOCYTES # (AUTO) 1.3 10^3/uL (1.5-3.5); LYMPHOCYTES % (AUTO) 13.8 %; MEAN CORPUSCULAR HEMOGLOBIN 30.9 pg (27.0-31.0); MEAN CORPUSCULAR HGB CONC 33.2 g/dL (32.0-36.0); MEAN CORPUSCULAR VOLUME 93.3 fL (81.0-99.0); MEAN PLATELET VOLUME 9.9 fL (7.9-10.8); MONOCYTES # (AUTO) 0.6 10^3/uL (0.0-1.0); MONOCYTES % (AUTO) 6.4 %; NEUTROPHILS # (AUTO) 7.1 10^3/uL (1.5-6.6); NEUTROPHILS % (AUTO) 77.8 %; PLT - PLATELET COUNT 363 10^3/uL (130-450); RED BLOOD COUNT 4.01 10^6/uL (4.20-5.40); RED CELL DISTRIBUTION WIDTH 12.6 % (12.0-15.0); WHITE BLOOD COUNT 9.1 x10^3/uL (4.8-10.8)
[2018-09-05 06:35] LABS: ALBUMIN/GLOBULIN RATIO 1.2 (1.0-2.2); BILIRUBIN,TOTAL 0.9 mg/dL (0.2-1.0); CALCIUM 9.1 mg/dL (8.5-10.3); CREATININE 0.8 mg/dL (0.4-1.0); TOTAL PROTEIN 7.4 g/dL (6.7-8.2)
[2018-09-05] MEDS ORDERED: LORazepam 2 MG/ML VIAL IVP STA (07:01)
--- NOTE | 2018-09-05 07:01 | CT Report ---
Reason: LLQ pain; h/o kidney stones Procedure Date: 09/05/2018 Accession Number: [id number] / [id number] Procedure: CT - Abdomen/Pelvis WO CPT Code: FULL RESULT: EXAM: CT ABDOMEN AND PELVIS (CT KUB) EXAM DATE: 09/05/2018 06:44 AM. CLINICAL HISTORY: LLQ pain; h/o kidney stones. COMPARISONS: ABDOMEN/PELVIS W/O 08/12/2018 1:08 PM. TECHNIQUE: Routine axial helical CT imaging was performed through the abdomen and pelvis without IV contrast. Reconstructions: Coronal and sagittal. In accordance with CT protocol optimization, one or more of the following dose reduction techniques were utilized for this exam: automated exposure control, adjustment of mA and/or KV based on patient size, or use of iterative reconstructive technique. FINDINGS: Lung Bases: Unremarkable. Right Kidney/Ureter: Punctate nonobstructing stones at the lower pole. No ureteral stones, hydronephrosis, or hydroureter. Left Kidney/Ureter: Mildly obstructing 4 x 4 mm proximal left ureteral stone. Scattered additional small nonobstructing stones measuring up to 2 mm. Otherwise grossly unremarkable. Other Abdominal Organs: Noncontrast images of the abdominal organs are grossly unremarkable. Peritoneal Cavity: No free fluid, free air or sudheer adenopathy. No excessive stool burden. Bowel is grossly unremarkable. Pelvic Organs: Post hysterectomy with no adnexal masses seen. The bladder appears within normal limits. Vasculature: Unremarkable. Other: None. IMPRESSION: 1. Mildly obstructing 4 x 4 mm proximal left ureteral stone. 2. Small bilateral nonobstructing renal stones with left stone burden worse than right. 3. Previous hysterectomy. RADIA
[2018-09-05 08:15] VITALS: BP 101/63
== END 2018-09-05 08:15 | disposition home or self-care (01) ==
LOC: ED 04:35
DX: N20.1 Calculus of ureter (principal)
CPT/HCPCS: 36415; 74176; 80053; 81003; 83690; 85025; 96361; 96374; 96375; 96376; 99284; J1170; J2060; 81001; 87086

== ENCOUNTER 2018-09-15 03:50 | Emergency (ER) | payer OTHER ==
--- NOTE | 2018-09-15 03:57 | ED Physician Documentation ---
PD HPI ABD PAIN - Stated complaint Stated Complaint: L BACK/ABD PAIN - History obtained from History obtained from: Patient - History of Present Illness Timing - onset: Last night Timing - details: Abrupt onset, Intermittant, Waxing and waning Pain level max: 10 Pain level now: 8 Quality: Pain Location: LLQ Radiation: Left flank Improved by: No: Eating, Laying still, Vomiting, BM, Position, Meds Worsened by: Position Associated symptoms: Nausea. No: Fever Similar symptoms before: Diagnosis (renal colic) Recently seen: Emergency Dept - Additional information Additional information: Patient was treated and released from this emergency department 10 days ago for same symptoms, at which time it was found that she had a left ureteral stone. She has a urology appointment scheduled for the end of this week. She returns due to sudden worsening of the left flank pain. The pain is noticeably lower than it was previously. Inadequate relief with Percocet. 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: Hysterectomy, Oophrectomy HEENT: Tonsil/Adenoidectomy - Present Medications Home Medications: Ambulatory Orders Medication Instructions Recorded Confirmed Topiramate [Topamax] 25 mg PO DAILY PRN 02/09/16 09/15/18 Zolpidem [Ambien] 5 mg PO DAILY 02/09/16 09/15/18 Ondansetron Odt [Zofran] 4 mg TL Q6H PRN #14 tablet 05/15/17 09/15/18 Oxycodone HCl/Acetaminophen 1 - 2 each PO Q6H PRN #14 tablet 09/05/18 09/15/18 [Percocet 5-325 mg Tablet] Promethazine [Phenergan] 25 mg PO Q6H PRN #10 tab 09/05/18 09/15/18 Tamsulosin [Flomax] 0.4 mg PO DAILY #7 capsule 09/05/18 09/15/18 Tamsulosin [Flomax] 0.4 mg PO DAILY #7 capsule 09/15/18 oxyCODONE [Roxicodone] 5 - 10 mg PO Q6H PRN #14 tablet 09/15/18 - Allergies Allergies/Adverse Reactions: Allergies Allergy/AdvReac Type Severity Reaction Status Date / Time sulfamethoxazole AdvReac Unknown Verified 09/15/18 04:28 [From ] trimethoprim [From ] AdvReac Unknown Verified 09/15/18 04:28 - Social History Does the pt smoke?: No Smoking Status: Never smoker Does the pt drink ETOH?: Yes Does the pt have substance abuse?: No - Immunizations Immunizations are current?: Yes Immunizations: Other immun current - POLST Patient has POLST: No PD ED PE NORMAL - Vitals Vital signs reviewed: Yes - General General: Alert and oriented X 3, Well developed/nourished, Other (obvious severe painful distress) - HEENT HEENT: Moist mucous membranes - Cardiac Cardiac: RRR, No murmur - Respiratory Respiratory: No respiratory distress, Clear bilaterally - Abdomen Abdomen: Soft, Non tender, Non distended - Back Back: No CVA TTP - Derm Derm: No rash Results - Vitals Vitals: Vital Signs - 24 hr 09/15/18 09/15/18 09/15/18 03:50 04:27 04:40 Temperature 36.5 C Heart Rate 88 75 80 Respiratory 24 12 14 Rate Blood Pressure 132/110 H 135/83 H 132/98 H O2 Saturation 100 98 100 09/15/18 09/15/18 09/15/18 04:51 05:07 05:31 Temperature Heart Rate 80 77 78 Respiratory 14 15 12 Rate Blood Pressure 128/78 142/69 H 126/81 H O2 Saturation 99 98 97 09/15/18 09/15/18 09/15/18 05:46 05:48 06:23 Temperature 36.7 C Heart Rate 76 79 Respiratory 12 12 Rate Blood Pressure 126/81 H 137/75 H O2 Saturation 92 96 99 09/15/18 09/15/18 06:40 07:40 Temperature 35.7 C L Heart Rate 78 91 Respiratory 16 20 Rate Blood Pressure 116/92 H 131/83 H O2 Saturation 98 95 Oxygen O2 Source Room air - Labs Labs: Laboratory Tests 09/15/18 09/15/18 09/15/18 04:08 04:08 04:12 WBC 8.2 RBC 4.32 Hgb 13.2 Hct 40.7 MCV 94.2 MCH 30.6 MCHC 32.4 RDW 12.3 Plt Count 363 MPV 9.8 Neut # (Auto) 4.7 Lymph # (Auto) 2.8 [place] # (Auto) 0.5 Eos # (Auto) 0.2 Baso # (Auto) 0.1 Absolute Nucleated RBC 0.00 Nucleated RBC % 0.0 Sodium 143 Potassium 3.7 Chloride 106 Carbon Dioxide 25 Anion Gap 12.0 BUN 16 Creatinine 0.9 Estimated GFR (MDRD) 68 L Glucose 138 H Calcium 9.6 Urine Color YELLOW Urine Clarity CLEAR Urine pH 5.5 Ur Specific [place] 1.025 Urine Protein TRACE Urine Glucose (UA) NEGATIVE Urine Ketones NEGATIVE Urine Occult Blood LARGE H Urine Nitrite NEGATIVE Urine Bilirubin NEGATIVE Urine Urobilinogen 0.2 (NORMAL) Ur Leukocyte Esterase TRACE H Urine RBC 11-25 H Urine WBC 0-3 Ur Squamous Epith Cells MOD Squamous H Urine Bacteria Rare Ur Microscopic Review INDICATED Urine Culture Comments NOT INDICATED - Rads (name of study) CT A/P Radiology: Prelim report reviewed, See rad report PD MEDICAL DECISION MAKING - ED course Complexity details: reviewed old records, reviewed results, re-evaluated patient, considered differential, d/w patient ED course: no improvement with toradol and IV lidocaine. pain control was achieved with repeated doses of dilaudid and small dose of lorazepam (to augment effect of dilaudid). she was drowsy at times but prior to final disposition, she was awake, alert, conversant, and in NAD and reported feeling much better. Departure - Departure Disposition: 01 Home, Self Care Clinical Impression: Renal colic Condition: Good Instructions: ED Stone Renal W Colic Follow-Up: Jeanne Reed PA-C [Primary Care Provider] - Prescriptions: oxyCODONE [Roxicodone] 5 - 10 mg PO Q6H PRN #14 tablet PRN Reason: Pain Tamsulosin [Flomax] 0.4 mg PO DAILY #7 capsule Comments: Follow up with your urologist; I recommend calling this morning to inquire about arranging an appointment sooner than the one you have scheduled for Saturday Discharge Date/Time: 09/15/18 07:46
[2018-09-15] MEDS ORDERED: SODIUM CHLORIDE 0.9% 1,000 ML IV STA (04:10)
[2018-09-15] MEDS ORDERED: LIDOCAINE-MPF 2% 10 ML in SODIUM CHLORIDE 0.9% 50 ML IV STA (04:11)
[2018-09-15] MEDS ORDERED: KETOROLAC 30 MG/ML VIAL IVP STA (04:11)
[2018-09-15 04:15] LABS: BILIRUBIN,URINE NEGATIVE (NEGATIVE); GLUCOSE, URINE (UA) NEGATIVE (NEGATIVE); KETONES,URINE (UA) NEGATIVE (NEGATIVE); LEUKOCYTE ESTERASE, URINE TRACE (NEGATIVE); NITRITE,URINE NEGATIVE (NEGATIVE); OCCULT BLOOD,URINE LARGE (NEGATIVE); PH,URINE 5.5 PH (5.0-7.5); PROTEIN,URINE TRACE mg/dL (NEGATIVE); UROBILINOGEN,URINE 0.2 (NORMAL) E.U./dL (NORMAL)
[2018-09-15 04:20] LABS: BASOPHILS # (AUTO) 0.1 10^3/uL (0.0-0.1); BASOPHILS % (AUTO) 0.7 %; EOSINOPHILS # (AUTO) 0.2 10^3/uL (0.0-0.7); HGB - HEMOGLOBIN 13.2 g/dL (12.0-16.0); LYMPHOCYTES # (AUTO) 2.8 10^3/uL (1.5-3.5); LYMPHOCYTES % (AUTO) 33.5 %; MEAN CORPUSCULAR HEMOGLOBIN 30.6 pg (27.0-31.0); MEAN CORPUSCULAR HGB CONC 32.4 g/dL (32.0-36.0); MEAN CORPUSCULAR VOLUME 94.2 fL (81.0-99.0); MEAN PLATELET VOLUME 9.8 fL (7.9-10.8); MONOCYTES # (AUTO) 0.5 10^3/uL (0.0-1.0); MONOCYTES % (AUTO) 6.3 %; NEUTROPHILS # (AUTO) 4.7 10^3/uL (1.5-6.6); NEUTROPHILS % (AUTO) 56.9 %; PLT - PLATELET COUNT 363 10^3/uL (130-450); RED BLOOD COUNT 4.32 10^6/uL (4.20-5.40); RED CELL DISTRIBUTION WIDTH 12.3 % (12.0-15.0); WHITE BLOOD COUNT 8.2 x10^3/uL (4.8-10.8)
[2018-09-15] MEDS ORDERED: ONDANSETRON 4 MG/2 ML VIAL IVP STA (04:20)
[2018-09-15 04:26] LABS: BACTERIA,URINE Rare /HPF (None Seen); CLARITY,URINE CLEAR (CLEAR); SQUAMOUS EPITHELIAL CELL,UR MOD Squamous (<= Few)
[2018-09-15 04:34] LABS: CALCIUM 9.6 mg/dL (8.5-10.3); CREATININE 0.9 mg/dL (0.4-1.0)
[2018-09-15] MEDS ORDERED: HYDROmorphone 1 MG/ML CARPUJECT IVP STA ×3 (04:39→06:16)
[2018-09-15] MEDS ORDERED: LORazepam 2 MG/ML VIAL IVP STA (05:11)
[2018-09-15] MEDS ORDERED: TAMSULOSIN 0.4 MG CAPSULE PO STA (05:55)
--- NOTE | 2018-09-15 06:59 | CT Report ---
Reason: left flank pain Procedure Date: 09/15/2018 Accession Number: [id number] / [id number] Procedure: CT - Abdomen/Pelvis WO CPT Code: FULL RESULT: EXAM: CT ABDOMEN AND PELVIS (CT KUB) EXAM DATE: 09/15/2018 06:44 AM. CLINICAL HISTORY: Left flank pain. COMPARISONS: ABDOMEN/PELVIS W/O 09/05/2018 6:35 AM. TECHNIQUE: Routine axial helical CT imaging was performed through the abdomen and pelvis without IV contrast. Reconstructions: Coronal and sagittal. In accordance with CT protocol optimization, one or more of the following dose reduction techniques were utilized for this exam: automated exposure control, adjustment of mA and/or KV based on patient size, or use of iterative reconstructive technique. FINDINGS: Lung Bases: Unremarkable. Right Kidney/Ureter: No stones, hydronephrosis, or hydroureter. No perinephric fat stranding. Left Kidney/Ureter: Left hydronephrosis and hydroureter to the bladder base, where there is a 5 mm calculus just proximal to the left ureterovesicular junction. Multiple left collecting system calculi, measuring up to 3 mm. Other Solid Organs: Noncontrast images of the solid organs are grossly unremarkable. Gallbladder/Bile Ducts: Unremarkable. Peritoneal Cavity: No free fluid, free air or sudheer adenopathy. Bowel is grossly unremarkable. Pelvic Organs: No bladder stones or wall thickening. Noncontrast images of the visualized pelvic organs are unremarkable. Vasculature: Unremarkable. Other: None. IMPRESSION: 5 mm calculus just proximal to the left ureterovesicular junction, producing left hydronephrosis. Multiple smaller left collecting system calculi. RADIA
[2018-09-15 07:41] VITALS: BP 131/83
== END 2018-09-15 07:46 | disposition home or self-care (01) ==
LOC: ED 03:50
DX: N13.2 Hydronephrosis with renal and ureteral calculous obstruction (principal)
CPT/HCPCS: 36415; 74176; 80048; 81001; 85025; 96361; 96365; 96375; 96376; 99284; A9270; J1170; J2060; J7040; 81003; 87086

== ENCOUNTER 2019-05-02 11:04 | Outpatient (CLI) | payer OTHER ==
--- NOTE | 2019-05-02 16:46 | CT Report ---
Reason: RLQ ABD PAIN Procedure Date: 05/02/2019 Accession Number: [id number] / [id number] Procedure: CT - Abdomen/Pelvis WO CPT Code: Final Report FULL RESULT: EXAM: CT ABDOMEN AND PELVIS (CT KUB) EXAM DATE: 05/02/2019 11:27 AM. CLINICAL HISTORY: RLQ ABD PAIN. COMPARISONS: ABDOMEN/PELVIS W/O 09/15/2018 6:33 AM. TECHNIQUE: Routine axial helical CT imaging was performed through the abdomen and pelvis without IV contrast. Reconstructions: Coronal and sagittal. In accordance with CT protocol optimization, one or more of the following dose reduction techniques were utilized for this exam: automated exposure control, adjustment of mA and/or KV based on patient size, or use of iterative reconstructive technique. FINDINGS: Lung Bases: Unremarkable. Right Kidney/Ureter: Two punctate nonobstructive calculi right kidney. No hydronephrosis, or hydroureter. No perinephric fat stranding. Left Kidney/Ureter: Two punctate nonobstructive calculi left kidney.No hydronephrosis, or hydroureter. No perinephric fat stranding. Other Solid Organs: Noncontrast images of the solid organs are grossly unremarkable. Gallbladder/Bile Ducts: Unremarkable. Peritoneal Cavity: No free fluid, free air or sudheer adenopathy. Bowel is grossly unremarkable. Appendix not seen in right lower quadrant, however there is no inflammation. Pelvic Organs: No bladder stones or wall thickening. Noncontrast images of the visualized pelvic organs are unremarkable. Vasculature: Unremarkable. Other: None. IMPRESSION: No urinary tract stones or obstruction. 2 punctate nonobstructive calculi in both kidneys. No hydronephrosis. No ureteric or bladder calculi. RADIA
== END 2019-05-02 11:05 | disposition home or self-care (01) ==
LOC: DI 11:04
PROVIDERS: ATTEND Physician Assistant
DX: R10.31 Right lower quadrant pain (principal); N20.0 Calculus of kidney
CPT/HCPCS: 74176

== ENCOUNTER 2019-08-15 07:34 | Outpatient (CLI) | payer OTHER ==
--- NOTE | 2019-08-15 10:09 | CT Report ---
PROCEDURE: Abdomen/Pelvis WO INDICATIONS: RT FLANK PAIN, HX OF STONES TECHNIQUE: Noncontrast 5 mm thick sections acquired from the diaphragms to the symphysis. 5 mm coronal and sagi ttal reformats were then performed. For radiation dose reduction, the following was used: automated exposure control, adjustment of mA and/or kV according to patient size. COMPARISON: None. FINDINGS: Image quality: Excellent. ABDOMEN: Lung bases: Lung bases are clear. Heart size is normal. Solid organs: Liver and spleen are normal in size. Gallbladder is within normal limits Pancreas is normal in contours. No adrenal nodules. Kidneys are normal in size. Bilateral nonobstructing renal calculi are noted measures up to 2 mm in size in midpole of left kidney. Mild prominence of right re nal collecting system and right ureter is seen with mild right perinephric fat stranding. There is canas ggestion of a 4 mm stone in distal right ureter just proximal to right UVJ. Mild prominence of left r enal collecting system and left ureter is also seen with suggestion of a 4 mm left distal ureteral st one just proximal to left UVJ. Both findings are new since 05/02/2019 study. Peritoneum and bowel: Unenhanced bowel loops demonstrate normal wall thickness and caliber. No free fluid or air. Nodes and vessels: No retroperitoneal or mesenteric adenopathy by size criteria. Aorta and inferior vena cava are normal in caliber. Miscellaneous: No ventral hernias. PELVIS: Genitourinary: Bladder wall thickness is normal. Miscellaneous: No inguinal hernias or adenopathy. Bones: No suspicious bony lesions. No vertebral body compression fractures. IMPRESSION: 1. 4 mm right distal ureteral stone just proximal to the right UVJ with mild right-sided hydronephros is, perinephric fat stranding and hydroureter. 4 mm left distal ureteral stone just proximal to left UVJ with mild left-sided hydronephrosis and hydroureter. Both findings are new since previous study. 2. Tiny bilateral nonobstructing renal calculi. 3. No bowel obstruction. No free fluid of free air. No abnormal bowel wall thickening. Reviewed by: Tan Miramontes MD on 08/15/2019 10:08 AM PDT Approved by: Tan Miramontes MD on 08/15/2019 10:08 AM PDT Station ID: [id number]
== END 2019-08-15 07:35 | disposition home or self-care (01) ==
LOC: DI 07:34
PROVIDERS: ATTEND Physician Assistant
DX: N13.2 Hydronephrosis with renal and ureteral calculous obstruction (principal)
CPT/HCPCS: 74176

== ENCOUNTER 2019-08-17 09:38 | Emergency (ER) | payer OTHER ==
[2019-08-17 09:46] VITALS: BP 142/97
[2019-08-17] MEDS ORDERED: ACETAMINOPHEN 500 MG TABLET PO STA (10:08)
[2019-08-17] MEDS ORDERED: KETOROLAC 60 MG/2 ML VIAL IM STA (10:08)
[2019-08-17 10:39] LABS: BILIRUBIN,URINE NEGATIVE (NEGATIVE); KETONES,URINE (UA) NEGATIVE (NEGATIVE); PH,URINE 5.5 PH (5.0-7.5)
[2019-08-17 10:49] LABS: CLARITY,URINE CLEAR (CLEAR)
[2019-08-17 10:50] LABS: HCG UR QUAL NEGATIVE
[2019-08-17 11:09] LABS: BACTERIA,URINE Few /HPF (None Seen); RBC,URINE TNTC /HPF (0-5); SQUAMOUS EPITHELIAL CELL,UR FEW Squamous (<= Few)
--- NOTE | 2019-08-17 23:24 | ED Physician Documentation ---
PD HPI ABD PAIN - Stated complaint Stated Complaint: FEMALE - Chief complaint Chief Complaint: Abd Pain - History obtained from History obtained from: Patient - History of Present Illness Timing - onset: How many days ago (4) Timing - duration: Days (4) Timing - details: Abrupt onset, Still present, Waxing and waning (had right flank pain that has undulated in severity and gotten much worse this morning. Has Urologist regarding kidney stone and had CT done last Saturday by Urologist showing large proximal stone, per patient. With the worse pain this morning, despite at home meds of Ibuprofen and Tylenol.) Quality: Aching, Sharp, Pain Location: RLQ Radiation: Right flank Improved by: No: Eating, Laying still Worsened by: No: Eating, Moving, Breathing Associated symptoms: Nausea. No: Fever, Vomiting, Diarrhea Similar symptoms before: Diagnosis (kidney stones) Recently seen: Clinic (seen by Urology last week and had CT done outpt.), Other (she tried calling Urology office but not heard back so here to ER due to the pain level. Improving some on arrival. Also heard back from Urologist, who wanted her to go to [facility] and be seen there in office. She is wanting to be discharged so can go there. 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: Endometriosis : Kidney stones Psych: Anxiety Musculoskeletal: Osteoporosis - Past Surgical History Past Surgical History: Yes /ISSUING OPERATOR: Hysterectomy, Oophrectomy HEENT: Tonsil/Adenoidectomy - Present Medications Home Medications: Ambulatory Orders Medication Instructions Recorded Confirmed Topiramate [Topamax] 25 mg PO DAILY PRN 02/09/16 09/15/18 Zolpidem [Ambien] 5 mg PO DAILY 02/09/16 09/15/18 Ondansetron Odt [Zofran] 4 mg TL Q6H PRN #14 tablet 05/15/17 09/15/18 Oxycodone HCl/Acetaminophen 1 - 2 each PO Q6H PRN #14 tablet 09/05/18 09/15/18 [Percocet 5-325 mg Tablet] Promethazine [Phenergan] 25 mg PO Q6H PRN #10 tab 09/05/18 09/15/18 Tamsulosin [Flomax] 0.4 mg PO DAILY #7 capsule 09/05/18 09/15/18 Tamsulosin [Flomax] 0.4 mg PO DAILY #7 capsule 09/15/18 oxyCODONE [Roxicodone] 5 - 10 mg PO Q6H PRN #14 tablet 09/15/18 - Allergies Allergies/Adverse Reactions: Allergies Allergy/AdvReac Type Severity Reaction Status Date / Time sulfamethoxazole AdvReac Unknown Verified 08/17/19 09:46 [From ] trimethoprim [From ] AdvReac Unknown Verified 08/17/19 09:46 - Social History Does the pt smoke?: No Smoking Status: Never smoker Does the pt drink ETOH?: Yes Does the pt have substance abuse?: No - Immunizations Immunizations are current?: Yes Immunizations: Other immun current - POLST Patient has POLST: No PD ED PE NORMAL - Vitals Vital signs reviewed: Yes - General General: Alert and oriented X 3, Well developed/nourished, Other (appears in pain. Conversant and alert. ) - Respiratory Respiratory: Clear bilaterally - Abdomen Abdomen: Soft, Non tender - Back Back: No spinal TTP, Other (right CVA tender) - Derm Derm: Normal color, Warm and dry Results - Vitals Vitals: Vital Signs - 24 hr 08/17/19 09:43 Temperature 36.4 C L Heart Rate 108 H Respiratory 20 Rate Blood Pressure 142/97 H O2 Saturation 99 Oxygen O2 Source Room air - Labs Labs: Laboratory Tests 08/17/19 10:15 Urine Color DK. ORANGE Urine Clarity CLEAR Urine pH 5.5 Ur Specific Brea 1.025 Urine Protein Urine Glucose (UA) Urine Ketones NEGATIVE Urine Occult Blood Urine Nitrite Urine Bilirubin NEGATIVE Urine Urobilinogen Ur Leukocyte Esterase Urine RBC TNTC H Urine WBC 4-5 Ur Squamous Epith Cells FEW Squamous Urine Bacteria Few Ur Microscopic Review INDICATED Urine Culture Comments NOT INDICATED Urine HCG, Qual NEGATIVE PD MEDICAL DECISION MAKING - ED course Complexity details: considered differential (Given Toradol and Tylenol for some improvement. She did not want IV. Had talked with Urology after triage and is wanting to drive over to Urology office, with plan for stent placement due to size of stones on recent CT scan few days ago.), d/w patient Departure - Departure Disposition: 01 Home, Self Care Clinical Impression: Acute flank pain, Ureterolithiasis Condition: Stable Instructions: ED Stone Renal W Colic Follow-Up: Jeanne Reed PA-C [Primary Care Provider] - Comments: Follow up with your Urologist from here, as directed by them. Nothing to eat nor drink on the way, if they are going to place a stent or such. Discharge Date/Time: 08/17/19 10:21
== END 2019-08-17 10:21 | disposition home or self-care (01) ==
LOC: ED 09:38
DX: N20.1 Calculus of ureter (principal)
CPT/HCPCS: 81001; 81025; 96372; 99283; 99284; A9270; 80053; 81003; 83690; 85025; 87086; 90471

== ENCOUNTER 2019-11-10 08:18 | Outpatient (CLI) | payer OTHER ==
--- NOTE | 2019-11-11 10:20 | Mammography Report ---
UNILATERAL LEFT DIGITAL DIAGNOSTIC MAMMOGRAM 3D/2D: 11/10/2019 CLINICAL: Patient returns today to evaluate a focal asymmetry in the left breast. Comparison is made to exams dated: 09/18/2019 mammogram, 06/04/2017 mammogram, 06/08/2015 ultrasound, a nd 06/08/2015 mammogram - [facility]. There are scattered fibroglandular elements i n left breast. The oval asymmetry in the left breast middle depth inferior region seen on the mediolateral oblique v iew only on prior screening mammogram is not seen in additional views. No other significant masses or calcifications are seen in the breast. IMPRESSION: NEGATIVE There is no mammographic evidence of malignancy. Asymmetry does not persist on additional views. A 1 year screening mammogram is recommended. Exam findings conveyed to the patient. This exam was interpreted at Station ID: [id number]. NOTE: For mammograms, a report in lay terms will be sent to the patient. Approximately 15% of breast malignancies will not be visualized mammographically. In the management of a palpable breast mass, a negative mammogram must not discourage biopsy of a clinically suspicious lesion. Electronically Signed By: Smith Khanna M.D. slc/:11/10/2019 09:15:17 ACR BI-RADS Category 1: Negative 3341F PARENCHYMAL PATTERN: (A) - The breast(s) demonstrate(s) scattered fibroglandular densities. BI-RADS CATEGORY: (1) - 1 RECOMMENDATION: (ANNUAL) - Recommend routine annual screening mammography. [id number] 1 year screening LATERALITY: (B)
== END 2019-11-10 08:19 | disposition home or self-care (01) ==
LOC: DI 08:18
PROVIDERS: ATTEND Physician Assistant Medical
DX: R92.8 Other abnormal and inconclusive findings on diagnostic imaging of breast (principal)

== ENCOUNTER 2019-12-17 14:51 | Outpatient (CLI) | payer OTHER ==
--- NOTE | 2019-12-17 17:04 | XRAY Report ---
PROCEDURE: Foot 3 View RT INDICATIONS: PAIN IN RIGHT FOOT TECHNIQUE: 3 views of the foot were acquired. COMPARISON: None. FINDINGS: Bones: Possible nondisplaced fracture involving the medial base of the right fifth toe proximal phal anx. This is only seen on the oblique view. No other acute fractures or dislocations. No suspicious bony lesions. Soft tissues: No tibiotalar joint effusion. Achilles tendon appears normal. IMPRESSION: Possible nondisplaced fracture involving the medial base of the right fifth toe proximal phalanx. Reviewed by: Simon Tafoya MD on 12/17/2019 5:03 PM PDT Approved by: Simon Tafoya MD on 12/17/2019 5:03 PM PDT Station ID: [id number]
== END 2019-12-17 14:52 | disposition home or self-care (01) ==
LOC: DI 14:51
PROVIDERS: ATTEND Physician Assistant
DX: M79.671 Pain in right foot (principal)

== ENCOUNTER 2020-03-25 17:35 | Outpatient (CLI) | payer OTHER ==
[2020-03-25 17:52] LABS: BASOPHILS # (AUTO) 0.1 10^3/uL (0.0-0.1); BASOPHILS % (AUTO) 0.5 %; EOSINOPHILS # (AUTO) 0.2 10^3/uL (0.0-0.7); EOSINOPHILS % (AUTO) 1.5 %; LYMPHOCYTES # (AUTO) 1.8 10^3/uL (1.5-3.5); MEAN CORPUSCULAR HEMOGLOBIN 29.8 pg (27.0-31.0); MEAN CORPUSCULAR HGB CONC 32.5 g/dL (32.0-36.0); MEAN CORPUSCULAR VOLUME 91.7 fL (81.0-99.0); MEAN PLATELET VOLUME 9.5 fL (7.9-10.8); MONOCYTES # (AUTO) 0.5 10^3/uL (0.0-1.0); MONOCYTES % (AUTO) 5.3 %; NEUTROPHILS # (AUTO) 7.5 10^3/uL (1.5-6.6); NEUTROPHILS % (AUTO) 74.2 %; PLT - PLATELET COUNT 359 10^3/uL (130-450); RED CELL DISTRIBUTION WIDTH 12.8 % (12.0-15.0); WHITE BLOOD COUNT 10.2 x10^3/uL (4.8-10.8)
[2020-03-25 18:33] LABS: ALBUMIN 4.2 g/dL (3.2-5.5); ALBUMIN/GLOBULIN RATIO 1.4 (1.0-2.2); BILIRUBIN,TOTAL 0.8 mg/dL (0.2-1.0); CALCIUM 9.3 mg/dL (8.5-10.3); CREATININE 0.8 mg/dL (0.4-1.0); TOTAL PROTEIN 7.1 g/dL (6.7-8.2)
== END 2020-03-25 17:36 | disposition home or self-care (01) ==
LOC: LAB 17:35
PROVIDERS: ATTEND Physician Assistant Medical
DX: R19.5 Other fecal abnormalities (principal); Z79.899 Other long term (current) drug therapy
CPT/HCPCS: 36415; 80053; 82150; 83690; 85025